=== PATIENT | female | born 1990 | race Two or more races ===

== ENCOUNTER → 2024-08-07 | Outpatient (CLI) | payer MEDICAID ==
[2024-08-07 08:10] LABS: Basophils # (auto) 0.1 10 ^3/uL (0-0.2); Eosinophils # (auto) 0.2 10 ^3/uL (0-0.8); Hematocrit 31.2 % (36.0-46.0); Hemoglobin 10.1 g/dL (12.2-16.2); Monocytes # (auto) 0.7 10 ^3/uL (0-1.3); Monocytes % (auto) 6.3 % (0.0-12.0); Neutrophils # (auto) 8.9 10 ^3/uL (1.6-8.6); Red Cell Distribution Width 14.6 % (11.8-14.3); White Blood Cell 11.6 10^3/uL (4.4-10.8)
[2024-08-07 08:14] LABS: Basophils % (auto) 0.5 % (0.0-2.0); Eosinophils % (auto) 1.4 % (0.0-7.0); Lymphocytes # (auto) 1.7 10 ^3/uL (0.4-5.4); Lymphocytes % (auto) 14.9 % (10.0-50.0); Mean Corpuscular Hemoglobin 24.4 pg (28.0-32.0); Mean Corpuscular Hgb Conc. 32.2 g/dL (32.0-36.0); Mean Corpuscular Volume 75.7 fL (80.0-100.0); Neutrophils % (auto) 76.9 % (37.0-80.0); Nucleated Red Blood Cells % 0.1 %; Platelet Count (auto) 373 10^3/uL (140-450); Red Blood Cells 4.13 10^6/uL (4.0-5.20)
[2024-08-07 08:26] LABS: Thyroid Stimulating Hormone 1.32 uIU/mL (0.55-4.78)
[2024-08-07 08:27] LABS: Alanine Aminotransferase 13 U/L (7-40); Albumin 3.8 g/dL (3.2-4.8); Anion Gap 9 (5-15); BUN/Creatinine Ratio 10.9 (10.0-20.0); Bilirubin, Total 0.4 mg/dL (0.2-1.0); Calcium 9.4 mg/dL (8.7-10.4); Carbon Dioxide 22 mmol/L (20-31); Chloride 106 mmol/L (98-107); Glucose 92 mg/dL (74-106); Sodium 137 mmol/L (136-145); Total Protein 6.4 g/dL (5.7-8.2)
[2024-08-07 08:37] LABS: Beta HCG, Quantitative 13572.3 mIU/mL (1.5-4.2)
[2024-08-07 08:38] LABS: Alkaline Phosphatase 173 U/L (46-116); Amphetamine Screen, Urine Neg (NEGATIVE); Aspartate Aminotransferase 12 U/L (13-40); Barbiturate Scree,Urine Neg (NEGATIVE); Benzodiazephine Screen, Urine Neg (NEGATIVE); Blood Urea Nitrogen 6 mg/dL (9-23); Cannabinoid Screen, Urine Neg (NEGATIVE); Cholesterol 249 mg/dL (< 200); Cocaine Screen, Urine Neg (NEGATIVE); HDL Cholesterol 65 mg/dL (40-59); LDL Cholesterol 192 mg/dL (< 100); Opiate Scree,Urine Neg (NEGATIVE); Phencyclidine Screen, Urine Neg (NEGATIVE); Triglycerides 189 mg/dL (< 150)
[2024-08-08 08:06] LABS: RPR Non Reactive (Non Reactive)
[2024-08-08 10:06] LABS: Varicella Zoster IgG Antibody Reactive (Non Reactive)
[2024-08-08 22:06] LABS: Chlamydia Trachomatis, NAA Negative (Negative); Neisseria gonorrhoeae, NAA Negative (Negative)
== END | disposition home or self-care (01) ==
LOC: LAB 07:09
PROVIDERS: ATTEND Obstetrics & Gynecology
DX: Z36.0 Encounter for antenatal screening for chromosomal anomalies (principal); Z39.0 Encounter for care and examination of mother immediately after delivery; N39.0 Urinary tract infection, site not specified; Z31.430 Encounter of female for testing for genetic disease carrier status for procreative management
CPT/HCPCS: 36415; 80053; 80061; 80307; 83036; 84439; 84443; 84702; 85025; 86592; 86703; 86706; 86762; 86787; 86850; 86900; 86901; 87086; 87902

== ENCOUNTER 2024-08-28 06:36 | Observation (INO) | payer SELFPAY ==
[2024-08-28] MEDS ORDERED: PREN-96 PO (11:37)
--- NOTE | 2024-08-28 12:45 | DVH ---
BIOPHYSICAL PROFILE HISTORY: double nuchal cord TECHNIQUE: Multiple transabdominal real-time grayscale sonographic images through the gravid uterus of the fetus with duplex Doppler color flow and M-mode spectral analysis FINDINGS: BIOPHYSICAL PROFILE: breathing score: 2 movement score: 2 tone score: 2 Quantitative JASPER score: 2 (JASPER: 20.4 Cm.) Total score: 8 The cervix not well visualized. Single live fetus in cephalic presentation. heart rate 138 beats per minute. Anterior placenta without previa or abruption IMPRESSION: Biophysical profile score: 8 Possible nuchal cord.
--- NOTE | 2024-08-28 17:42 | DVHDS2 ---
Physician Discharge Progress N Final Diagnosis: testing for nuchal cord Operations or Procedures: Operations or Procedures 34yo IUP@38.0wks, +FM, denies UCs/VB/LOF/VERDUZCO/vision changes/RUQ pain VSS NST reactive FKC/Labor/PreE precautions reviewed Other Interventions Other Interventions [address] [address] Ph: [phone] DIAGNOSTIC IMAGING Diagnostic Imaging Report : [id number] Signed PATIENT: GORDON IRIZARRY ACCT: [id number] UNIT: [id number] : 1990 LOC: [facility] ROOM / BED: TRIAGE2 / A AGE / SEX: 34 / F ADM STATUS: ADM IN SERVICE 24 ORDERING PHYSICIAN: CINTHIA GARCIA CNM PROCEDURE(s): BPP - BIOPHYSICAL PROFILE REASON: double nuchal cord ORDER NUMBER(s): [id number], ACCESSION NUMBER(s): [id number] BIOPHYSICAL PROFILE HISTORY: double nuchal cord TECHNIQUE: Multiple transabdominal real-time grayscale sonographic images through the gravid uterus of the fetus with duplex Doppler color flow and M-mode spectral analysis FINDINGS: BIOPHYSICAL PROFILE: breathing score: 2 movement score: 2 tone score: 2 Quantitative JASPER score: 2 (JASPER: 20.4 Cm.) Total score: 8 The cervix not well visualized. Single live fetus in cephalic presentation. heart rate 138 beats per minute. Anterior placenta without previa or abruption IMPRESSION: Biophysical profile score: 8 Possible nuchal cord. ATED BY: KORTNEY LÓPEZ MD DICTATED DATE/TIME: 08/28/244 SIGNED BY: KORTNEY LÓPEZ MD SIGNED DATE/TIME: 08/28/24 124 CC: Condition on Discharge: Stable Disposition: Home Discharge Instructions: Diet: Regular Activity: No Restrictions, As Tolerated Medications: see med list Follow Up Care: Specialist: f/u in 1 wk Discharge Statement: "Patient was advised to return to the ER or call 911 if any headaches, dizziness, shortness of breath, chest pain, abdominal pain, bleeding, fevers, or worsening of medical condition. Patient was counseled about treatment plan, medications, possible side effects, patientverbalized understanding. All questions were answered to the best of my ability. This discharge took greater then 30 minutes in planning, reviewing documentation, counseling the patient, and discussing with other team members." Visit Coding OBGYN Date of Service: Aug 28, 2024 Billing Provider: CINTHIA GARCIA CNM LUNG SPLITTER Common Visit Codes: 85422-ECYNBEN OBS CARE (HIGH) (NST/BPP) CINTHIA GARCIA CNM Aug 28, 2024 17:42
== END 2024-08-28 12:53 | disposition home or self-care (01) ==
LOC: LDRP 11:14 → UNDOADMOB 11:14 → LDRP 11:27 → UNDODISOB 12:53
PROVIDERS: ADMIT Obstetrics & Gynecology; ATTEND Obstetrics & Gynecology
DX: O69.81X0 Labor and delivery complicated by cord around neck, without compression, not applicable or unspecified (principal); Z3A.38 38 weeks gestation of pregnancy; Z79.899 Other long term (current) drug therapy
CPT/HCPCS: 59025; 76818; 81002; 94760; G0378

== ENCOUNTER 2024-08-30 10:52 | Observation (INO) | payer SELFPAY ==
[~2024-08-30 10:52] MED LIST: PREN-96 PO
[2024-08-30 12:20] LABS: Fern Testing Negative
--- NOTE | 2024-08-31 15:27 | DVHDS2 ---
Physician Discharge Progress N Final Diagnosis: rom ruled out Operations or Procedures: Operations or Procedures nst,sono Condition on Discharge: Good Disposition: Home Discharge Instructions: Diet: Regular Activity: No Restrictions, As Tolerated Medications: na Follow Up Care: Specialist: 3d Discharge Statement: "Patient was advised to return to the ER or call 911 if any headaches, dizziness, shortness of breath, chest pain, abdominal pain, bleeding, fevers, or worsening of medical condition. Patient was counseled about treatment plan, medications, possible side effects, patientverbalized understanding. All questions were answered to the best of my ability. This discharge took greater then 30 minutes in planning, reviewing documentation, counseling the patient, and discussing with other team members." Visit Coding OBGYN Date of Service: Aug 30, 2024 Billing Provider: YANNA RODRIGUEZ DO STRATEGIC MARKETING ASSOCIATE Common Visit Codes: 33653-TCY/OBS SAME DATE (HIGH) STRATEGIC MARKETING ASSOCIATE Procedure Codes: 18510-84- NON-STRESS TEST YANNA RODRIGUEZ DO Aug 31, 2024 15:27
== END 2024-08-30 11:51 | disposition home or self-care (01) ==
LOC: LDRP 10:52 → UNDOADMOB 10:52 → LDRP 11:03
PROVIDERS: ADMIT Obstetrics & Gynecology; ATTEND Obstetrics & Gynecology
DX: O42.913 Preterm premature rupture of membranes, unspecified as to length of time between rupture and onset of labor, third trimester (principal); Z3A.38 38 weeks gestation of pregnancy; Z79.899 Other long term (current) drug therapy; Z98.890 Other specified postprocedural states
CPT/HCPCS: 59025; 81002; 84112; 94760; G0378; Q0114

== ENCOUNTER 2024-09-04 06:56 | Observation (INO) | payer SELFPAY ==
--- NOTE | 2024-09-04 09:03 | DVH ---
BIOPHYSICAL PROFILE HISTORY: NUCHAL TECHNIQUE: Multiple transabdominal real-time grayscale sonographic images through the gravid uterus of the fetus with duplex Doppler color flow and M-mode spectral analysis FINDINGS: BIOPHYSICAL PROFILE: breathing score: 2 movement score: 2 tone score: 2 Quantitative JASPER score: 2 (JASPER: 19.8 Cm.) Total score: 8 The cervix not well visualized. Single live fetus in cephalic presentation. heart rate 140 beats per minute. Anterior placenta without previa or abruption Nuchal cord is visualized. IMPRESSION: Biophysical profile score: 8 Nuchal cord is visualized.
--- NOTE | 2024-09-04 20:12 | DVHDS2 ---
Physician Discharge Progress N Final Diagnosis: testing for nuchal cord Operations or Procedures: Operations or Procedures 34yo IUP@39.0wks, +FM, denies LOF/UCs/VB VSS NST reactive FKC/labor precautions reviewed Other Interventions Other Interventions [facility] [id number] [place] [address] Ph: [phone] DIAGNOSTIC IMAGING Diagnostic Imaging Report : [id number] Signed PATIENT: GORDON IRIZARRY ACCT: [id number] UNIT: [id number] : 1990 LOC: [facility] ROOM / BED: TRIAGE1 / A AGE / SEX: 34 / F ADM STATUS: ADM IN SERVICE 0 ORDERING PHYSICIAN: CINTHIA GARCIA CNM PROCEDURE(s): BPP - BIOPHYSICAL PROFILE REASON: NUCHAL ORDER NUMBER(s): [id number], ACCESSION NUMBER(s): [id number] BIOPHYSICAL PROFILE HISTORY: NUCHAL TECHNIQUE: Multiple transabdominal real-time grayscale sonographic images through the gravid uterus of the fetus with duplex Doppler color flow and M-mode spectral analysis FINDINGS: BIOPHYSICAL PROFILE: breathing score: 2 movement score: 2 tone score: 2 Quantitative JASPER score: 2 (JASPER: 19.8 Cm.) Total score: 8 The cervix not well visualized. Single live fetus in cephalic presentation. heart rate 140 beats per minute. Anterior placenta without previa or abruption Nuchal cord is visualized. IMPRESSION: Biophysical profile score: 8 Nuchal cord is visualized. ATED BY: KORTNEY LÓPEZ MD DICTATED DATE/TIME: 09/04/24901 SIGNED BY: KORTNEY LÓPEZ MD SIGNED DATE/TIME: 09/04/24901 CC: Condition on Discharge: Stable Disposition: Home Discharge Instructions: Diet: Regular Activity: No Restrictions, As Tolerated Medications: see med list Follow Up Care: Specialist: f/u in 1 wk at 40.0wks Discharge Statement: "Patient was advised to return to the ER or call 911 if any headaches, dizziness, shortness of breath, chest pain, abdominal pain, bleeding, fevers, or worsening of medical condition. Patient was counseled about treatment plan, medications, possible side effects, patientverbalized understanding. All questions were answered to the best of my ability. This discharge took greater then 30 minutes in planning, reviewing documentation, counseling the patient, and discussing with other team members." Visit Coding OBGYN Date of Service: Sep 04, 2024 Billing Provider: CINTHIA GARCIA CNM UNATTENDED GROUND SENSOR SPECIALIST Common Visit Codes: 03972-FJQROQT OBS CARE (HIGH) CINTHIA GARCIA CNM Sep 04, 2024 20:12
== END 2024-09-04 09:46 | disposition home or self-care (01) ==
LOC: UNDOADMOB 08:31 → LDRP 08:31 → UNDODISOB 09:46
PROVIDERS: ADMIT Obstetrics & Gynecology; ATTEND Obstetrics & Gynecology
DX: O69.81X0 Labor and delivery complicated by cord around neck, without compression, not applicable or unspecified (principal); Z98.890 Other specified postprocedural states; Z79.899 Other long term (current) drug therapy; Z3A.39 39 weeks gestation of pregnancy
CPT/HCPCS: 59025; 76818; 81002; 94760; G0378

== ENCOUNTER 2024-09-04 19:52 | Observation (INO) | payer SELFPAY ==
[~2024-09-04] VITALS: Ht 173 cm; Wt 83.9 kg
--- NOTE | 2024-09-04 23:33 | DVHDS2 ---
Physician Discharge Progress N Final Diagnosis: wellbeing established Operations or Procedures: Operations or Procedures S: 34yo IUP@39.0wks presents to OB triage with c/o DFM since this morning. Pt was in OB triage this morning for NST/BPP for nuchal cord. Denies LOF/VB/UCs/VERDUZCO/vision changes/RUQ pain. PNC with Dr. Marroquin, uncomplicated. Prior to D/C home pt reports feeling FM. O: VSS UA wnl EFM: FHR 125, moderate variability, +accels, -decels (last 30 minutes) TOCO: no UCs BPP from this morning was 8/8 PO hydrated with water and juice A: 34yo IUP@39.0wks Category I EFM P: D/C home kick counts and Preeclampsia warning signs reviewed. Labor precautions given and when to return to the hospital. Condition on Discharge: Stable Disposition: Home Discharge Instructions: Diet: Regular Activity: No Restrictions, As Tolerated Medications: see med list Follow Up Care: Specialist: f/u in 1 wk at 40wks Discharge Statement: "Patient was advised to return to the ER or call 911 if any headaches, dizziness, shortness of breath, chest pain, abdominal pain, bleeding, fevers, or worsening of medical condition. Patient was counseled about treatment plan, medications, possible side effects, patientverbalized understanding. All questions were answered to the best of my ability. This discharge took greater then 30 minutes in planning, reviewing documentation, counseling the patient, and discussing with other team members." Visit Coding OBGYN Date of Service: Sep 04, 2024 Billing Provider: CINTHIA GARCIA CNM COMMUNITY OUTREACH WORKER Common Visit Codes: 86359-QDOWSCF OBS CARE (HIGH) CINTHIA GARCIA CNM Sep 04, 2024 23:33
== END 2024-09-04 21:52 | disposition home or self-care (01) ==
LOC: LDRP 19:52
PROVIDERS: ADMIT Obstetrics & Gynecology; ATTEND Obstetrics & Gynecology
DX: O36.8130 Decreased fetal movements, third trimester, not applicable or unspecified (principal); O69.81X0 Labor and delivery complicated by cord around neck, without compression, not applicable or unspecified; Z98.890 Other specified postprocedural states; Z79.899 Other long term (current) drug therapy; Z3A.39 39 weeks gestation of pregnancy
CPT/HCPCS: 59025; 81002; 94760; G0378

== ENCOUNTER 2024-09-11 08:10 | Observation (INO) | payer SELFPAY ==
--- NOTE | 2024-09-11 09:10 | DVH ---
BIOPHYSICAL PROFILE HISTORY: nuchal cord TECHNIQUE: Multiple transabdominal real-time grayscale sonographic images through the gravid uterus of the fetus with duplex Doppler color flow and M-mode spectral analysis FINDINGS: BIOPHYSICAL PROFILE: breathing score: 2 movement score: 2 tone score: 2 Quantitative JASPER score: 2 (JASPER: 14.3 Cm.) Total score: 8 The cervix not well visualized. Single live fetus in vertex presentation. heart rate 120 beats per minute. Anterior placenta without previa or abruption IMPRESSION: Biophysical profile score: 8 No nuchal cord is seen at this time.
[2024-09-11] MEDS ORDERED: CEPH250C PO (10:57)
--- NOTE | 2024-09-11 19:34 | DVHDS2 ---
Physician Discharge Progress N Final Diagnosis: testing for term Problems List: (1) UTI (urinary tract infection) during (2) 40 weeks gestation of Operations or Procedures: Operations or Procedures 34yo IUP@40.0wks, +FM, Denies UCs/LOF/VB/VERDUZCO/vision changes/RUQ pain. VSS UA: +nitrites NST reactive BPP wnl, no nuchal cord today SVE by RN: closed/thick/high kick counts and Preeclampsia warning signs reviewed. Labor precautions given and when to return to the hospital. Dx with UTI, rx sent for keflex Other Interventions Other Interventions [place] [address] Ph: [phone] DIAGNOSTIC IMAGING Diagnostic Imaging Report : [id number] Signed PATIENT: GORDON IRIZARRY ACCT: [id number] UNIT: [id number] : 1990 LOC: [facility] ROOM / BED: TRIAGE3 / A AGE / SEX: 34 / F ADM STATUS: ADM IN SERVICE 7 ORDERING PHYSICIAN: CINTHIA GARCIA CNM PROCEDURE(s): BPP - BIOPHYSICAL PROFILE REASON: nuchal cord ORDER NUMBER(s): [id number], ACCESSION NUMBER(s): [id number] BIOPHYSICAL PROFILE HISTORY: nuchal cord TECHNIQUE: Multiple transabdominal real-time grayscale sonographic images through the gravid uterus of the fetus with duplex Doppler color flow and M-mode spectral analysis FINDINGS: BIOPHYSICAL PROFILE: breathing score: 2 movement score: 2 tone score: 2 Quantitative JASPER score: 2 (JASPER: 14.3 Cm.) Total score: 8 The cervix not well visualized. Single live fetus in vertex presentation. heart rate 120 beats per minute. Anterior placenta without previa or abruption IMPRESSION: Biophysical profile score: 8 No nuchal cord is seen at this time. ATED BY: KORTNEY LÓPEZ MD DICTATED DATE/TIME: 09/11/24908 SIGNED BY: KORTNEY LÓPEZ MD SIGNED DATE/TIME: 09/11/24908 CC: Condition on Discharge: Stable Disposition: Home Discharge Instructions: Diet: Regular Activity: No Restrictions, As Tolerated Medications: see med list Follow Up Care: Specialist: f/u in 2 days Discharge Statement: "Patient was advised to return to the ER or call 911 if any headaches, dizziness, shortness of breath, chest pain, abdominal pain, bleeding, fevers, or worsening of medical condition. Patient was counseled about treatment plan, medications, possible side effects, patientverbalized understanding. All questions were answered to the best of my ability. This discharge took greater then 30 minutes in planning, reviewing documentation, counseling the patient, and discussing with other team members." Visit Coding OBGYN Date of Service: Sep 11, 2024 Billing Provider: CINTHIA GARCIA CNM SONOSCOPE OPERATOR Common Visit Codes: 33137-[id number] OBS CARE (LOW) SONOSCOPE OPERATOR Procedure Codes: 41862-99- NON-STRESS TEST CINTHIA GARCIA CNM Sep 11, 2024 19:34
== END 2024-09-11 09:37 | disposition home or self-care (01) ==
LOC: LDRP 08:10
PROVIDERS: ADMIT Obstetrics & Gynecology; ATTEND Obstetrics & Gynecology
DX: O48.0 Post-term pregnancy (principal); O23.43 Unspecified infection of urinary tract in pregnancy, third trimester; N39.0 Urinary tract infection, site not specified; Z98.890 Other specified postprocedural states; Z79.899 Other long term (current) drug therapy; Z3A.40 40 weeks gestation of pregnancy
CPT/HCPCS: 59025; 76818; 81002; 94760; G0378

== ENCOUNTER 2024-09-13 08:35 | Observation (INO) | payer SELFPAY ==
[~2024-09-13 08:35] MED LIST changes: +CEPH250C PO
--- NOTE | 2024-09-13 09:46 | DVH ---
CLINICAL HISTORY: Term . COMPARISON: US BIOPHYSICAL PROFILE on DOS: 09/11/24, US BIOPHYSICAL PROFILE on DOS: 09/04/24, US BIOPHY SICAL PROFILE on DOS: 08/28/24 TECHNIQUE: biophysical profile was performed. Transabdominal sonographic images of the fetus we re obtained. FINDINGS: The fetus is in cephalic position. heart rate measures 126 BPM. Amniotic fluid index measures 15.3 cm. The placenta is anterior in position. BPP profile is an overall score of 8/8, with 2/2 points for breathing, with at least one episode of breathing over a 30 second duration during a 30 minute observation, 2/2 points for m ovements, with 3 or more discrete body or limb movements, 2/2 points for tone, with one or more episodes of extremity extension with return to flexion, or opening and closing of hand, and 2/ 2 points for amniotic fluid, with at least 1 pocket of amniotic fluid that measures 2 cm in 2 perpend icular planes. The umbilical cord is seen adjacent to the neck on some images, although not dem onstrated to be completely encircling the neck. IMPRESSION: 1. BPP score of 8/8. 2. The umbilical cord is seen adjacent to the neck, although not demonstrated to wrap completel y around the neck on this exam.
--- NOTE | 2024-09-13 15:56 | DVHDS2 ---
Physician Discharge Progress N Final Diagnosis: iup at 40wks labor check Operations or Procedures: Operations or Procedures nst 40wks,sono Condition on Discharge: Good Disposition: Home Discharge Instructions: Diet: Regular Activity: No Restrictions, As Tolerated Medications: na Follow Up Care: Specialist: 2d Discharge Statement: "Patient was advised to return to the ER or call 911 if any headaches, dizziness, shortness of breath, chest pain, abdominal pain, bleeding, fevers, or worsening of medical condition. Patient was counseled about treatment plan, medications, possible side effects, patientverbalized understanding. All questions were answered to the best of my ability. This discharge took greater then 30 minutes in planning, reviewing docum entation, counseling the patient, and discussing with other team members." Visit Coding OBGYN Date of Service: Sep 13, 2024 Billing Provider: YANNA RODRIGUEZ DO ROLLER BEARING INSPECTOR Common Visit Codes: 33395-VPS/OBS DISCH DAY <30MIN, 84437-FHO/OBS DISCH DAY >30MIN ROLLER BEARING INSPECTOR Procedure Codes: 63843-98- NON-STRESS TEST YANNA RODRIGUEZ DO Sep 13, 2024 15:56
== END 2024-09-13 10:05 | disposition home or self-care (01) ==
LOC: UNDOADMOB 08:35 → LDRP 08:35
PROVIDERS: ADMIT Obstetrics & Gynecology; ATTEND Obstetrics & Gynecology
DX: O62.9 Abnormality of forces of labor, unspecified (principal); Z3A.40 40 weeks gestation of pregnancy; Z79.899 Other long term (current) drug therapy
CPT/HCPCS: 59025; 76818; 81002; 94760; G0378

== ENCOUNTER 2024-09-15 06:41 | Observation (INO) | payer SELFPAY ==
--- NOTE | 2024-09-15 09:46 | DVH ---
BIOPHYSICAL PROFILE HISTORY: Post Dates Comparison Study: 09/13/2024 TECHNIQUE: Multiple real-time grayscale sonographic images through the gravid uterus of the fetus wi th duplex Doppler color flow and M-mode spectral analysis FINDINGS: BIOPHYSICAL PROFILE: breathing score: 2 movement score: 2 tone score: 2 Quantitative JASPER score: 2 (JASPER: 14.7 Cm.) Total score: 8 The cervix is not visualized Single live fetus in cephalic presentation. heart rate 148 beats per minute. Anterior placenta without previa or abruption IMPRESSION: Biophysical profile score: 8/8
--- NOTE | 2024-09-15 15:50 | DVHDS2 ---
Physician Discharge Progress N Final Diagnosis: Term here rule out labor history of nuchal cord Operations or Procedures: Operations or Procedures None ultrasound NST Consultations: Consultations None Condition on Discharge: Good Disposition: Home SNF Discharge Will this Physician continue t: No (Kick counts labor precautions follow up 48 hours or p.r.n. from increased labor or decreased movement) Discharge Instructions: Diet: Regular Activity: No Restrictions, As Tolerated Follow Up/Referral: 48 hour Medications: None Follow Up Care: Discharge Statement: "Patient was advised to return to the ER or call 911 if any headaches, dizziness, shortness of breath, chest pain, abdominal pain, bleeding, fevers, or worsening of medical condition. Patient was counseled about treatment plan, medications, possible side effects, patientverbalized understanding. All questions were answered to the best of my ability. This discharge took greater then 30 minutes in planning, reviewing documentation, counseling the patient, and discussing with other team members." Visit Coding OBGYN Date of Service: Sep 15, 2024 Billing Provider: PRETTY TAVARES DO GRADE TEACHER Common Visit Codes: 11754-BRX/OBS SAME DATE (LOW), 89226-GOK/OBS SAME DATE (MOD), 08585-XFP/OBS SAME DATE (HIGH) GRADE TEACHER Procedure Codes: 48541-18- NON-STRESS TEST PRETTY TAVARES DO Sep 15, 2024 15:50
== END 2024-09-15 10:46 | disposition home or self-care (01) ==
LOC: LDRP 08:39
PROVIDERS: ADMIT Obstetrics & Gynecology; ATTEND Obstetrics & Gynecology
DX: O48.0 Post-term pregnancy (principal); Z98.890 Other specified postprocedural states; Z79.899 Other long term (current) drug therapy; Z3A.40 40 weeks gestation of pregnancy
CPT/HCPCS: 59025; 76818; 81002; G0378

== ENCOUNTER 2024-09-16 19:57 | Inpatient (IN) | payer SELFPAY ==
[~2024-09-16] VITALS: Ht 172.7 cm; Wt 95.7 kg
[2024-09-16] MEDS ORDERED: LIDOCAINE 2%HCL (LOCAL ANESTH.) INJ 20ML MDV IJ PRN (20:15)
[2024-09-16] MEDS ORDERED: NALBUPHINE HCL 10 MG/1ml INJECTION IV PRN (20:15)
[2024-09-16] MEDS ORDERED: NALBUPHINE HCL 10 MG/1ml INJECTION IM PRN (20:15)
[2024-09-16 21:20] LABS: Basophils # (auto) 0 10 ^3/uL (0-0.2); Eosinophils # (auto) 0.1 10 ^3/uL (0-0.8); Mean Corpuscular Hemoglobin 24.6 pg (28.0-32.0); Nucleated Red Blood Cells % 0.1 %
[2024-09-16 21:22] LABS: Basophils % (auto) 0.3 % (0.0-2.0); Hematocrit 33.8 % (36.0-46.0); Hemoglobin 11.2 g/dL (12.2-16.2); Lymphocytes # (auto) 1.7 10 ^3/uL (0.4-5.4); Lymphocytes % (auto) 14.7 % (10.0-50.0); Mean Corpuscular Hgb Conc. 33.2 g/dL (32.0-36.0); Mean Corpuscular Volume 74.1 fL (80.0-100.0); Monocytes # (auto) 0.9 10 ^3/uL (0-1.3); Monocytes % (auto) 8.4 % (0.0-12.0); Neutrophils # (auto) 8.5 10 ^3/uL (1.6-8.6); Neutrophils % (auto) 75.6 % (37.0-80.0); Platelet Count (auto) 365 10^3/uL (140-450); Red Blood Cells 4.56 10^6/uL (4.0-5.20); Red Cell Distribution Width 17.3 % (11.8-14.3); White Blood Cell 11.3 10^3/uL (4.4-10.8)
[2024-09-16 21:36] LABS: INR 0.88 (0.9-1.15); Partial Thromboplastin Time 27.5 SEC (24.5-34.5); Prothrombin Time 9.4 sec (9.3-11.8)
[2024-09-16 21:39] LABS: Alanine Aminotransferase 24 U/L (7-40); Albumin 3.9 g/dL (3.2-4.8); Anion Gap 7 (5-15); Aspartate Aminotransferase 17 U/L (13-40); BUN/Creatinine Ratio 13.2 (10.0-20.0); Bilirubin, Total 0.4 mg/dL (0.2-1.0); Blood Urea Nitrogen 9 mg/dL (9-23); Calcium 9.8 mg/dL (8.7-10.4); Carbon Dioxide 23 mmol/L (20-31); Chloride 107 mmol/L (98-107); Glucose 85 mg/dL (74-106); Sodium 137 mmol/L (136-145)
[2024-09-16 21:40] LABS: Total Protein 6.4 g/dL (5.7-8.2)
[2024-09-16 21:44] LABS: Alkaline Phosphatase 273 U/L (46-116)
[2024-09-16] MEDS: miSOPROStol 50 MCG per PRE-CUT 1/2 TAB PO PRN (22:27)
[2024-09-16] MEDS: LACTATED RINGER'S 1,000 ML IV SCH (22:28)
[2024-09-16 22:34] LABS: Urine Bacteria FEW /hpf (None Seen); Urine Blood Negative /uL (Negative); Urine Clarity Clear (Clear); Urine Color Yellow (Yellow); Urine Protein, UAD TRACE (Negative); Urine Specific Gravity 1.024 (1.001-1.035); Urine Squamous Epithelial Cell MOD /hpf (<5); Urine Urobilinogen Normal (Negative); Urine WBC 13 /HPF (0-5)
[2024-09-16 22:48] LABS: Amphetamine Screen, Urine Neg (NEGATIVE); Barbiturate Scree,Urine Neg (NEGATIVE); Benzodiazephine Screen, Urine Neg (NEGATIVE); Cannabinoid Screen, Urine Neg (NEGATIVE); Cocaine Screen, Urine Neg (NEGATIVE); Opiate Scree,Urine Neg (NEGATIVE); Phencyclidine Screen, Urine Neg (NEGATIVE)
[2024-09-16 22:59] LABS: Hepatitis B Surface Antibody Positive (Negative)
--- NOTE | 2024-09-16 23:00 | DVHHP2 ---
OB CC & HPI Date Date of Admission: Sep 16, 2024 Patient Identification: : 2 Para: 1 EDC: Sep 11, 2024 EGA: 40 5/7 Chief Complaints: Reason for admission: induction of labor (probable nuchal cord) Indication for induction: post dates Admission Nurse Assessment Rev: Yes Past Medical History Cardiac: No pertinent Hx Pulmonary: No pertinent Hx Central Nervous System: No pertinent Hx GI: No pertinent Hx Hemotology/Oncology: No pertinent Hx Hepatobiliary: No pertinent Hx Psychiatric: No pertinent Hx Musculoskeletal: No pertinent Hx Rheumotologic: No pertinent Hx Infectious Disease: No peritnent Hx ENT: No pertinent Hx Renal/: No pertinent Hx Endocrine: No pertinent Hx Dermatology: No pertinent Hx Past Surgical History: No pertinent Hx OB History OB History Care: Limited Care ([facility]) Obstetrical Complications: None Medical Complications: None Allergies: Coded Allergies: NO KNOWN ALLERGIES (Unverified , 09/04/24) Home Meds Active Scripts Cephalexin (KEFLEX CAPSULE) 250 Mg Cp, 1 CAP PO BID for 7 Days, #14 CAP Prov:CINTHIA GARCIA CNM 09/11/24 Reported Medications Vit W/ Ferrous Fumara ( One Daily) Daily Tab, 1 TAB PO DAILY, #90 TAB 3 Refills 08/28/24 Current Medications Current Medications Medications (Trade) Dose Ordered Sig/Tonny Route PRN Reason Start Time Stop Time Status Last Admin Lactated Ringer's 1,000 ml @ 125 mls/hr Q8H IV 09/16/24 20:15 09/16/24 22:28 Nalbuphine HCl (Nubain) 10 mg Q4HP PRN IM MODERATE PAIN (4-6 PAIN SCALE) 09/16/24 20:15 Nalbuphine HCl (Nubain) 10 mg Q4HP PRN IV MODERATE PAIN (4-6 PAIN SCALE) 09/16/24 20:15 Witch Pushpa (Tucks) 1 pad PRN PRN TOP PERINEAL AREA DISCOMFORT 09/16/24 20:15 Sodium Lauryl Sulfate (Phisoderm) 240 ml PRN PRN TOP PERINEAL AREA DISCOMFORT 09/16/24 20:15 Benzocaine (Dermoplast) 1 applic PRN PRN TOP PERINEAL AREA DISCOMFORT 09/16/24 20:15 Misoprostol (Cytotec) 50 mcg Q4HPRN PRN PO CERVICAL RIPENING 09/16/24 20:15 09/16/24 22:27 Lidocaine HCl (Xylocaine) 20 ml ONCE PRN IJ PERINEAL AREA DISCOMFORT 09/16/24 20:15 Family & Social History Family/Social History Blood Type: A+ Rubella: immune RPR/VDRL: Negative GBS Status: Negative HBsAG: Unknown Review of Systems Constitutional: No symptom reported Ears, Nose, & Throat: No symptom reported Eyes: No symptom reported Pulmonary/Respiratory: No symptom reported Cardiovascular: No symptom reported Gastrointestinal: No symptom reported Genitourinary: No symptom reported Musculoskeletal: No symptom reported Skin: No symptom reported Psychiatric: No symptom reported Endocrine: No symptom reported Hemotologic/Lymphatic: No symptom reported OB Admission Exam Physical Exam HEENT: TMs Normal, Fontanelles Normal, Nasal Mucosa Normal, Eyes non-injected, Oropharynx Normal, PERRLA, Moist Membranes, EOMI Heart: Rhythm Normal Lungs: Clear Abdomen: Non tender Extremities: Normal Reflexes: Normal Cervical Dilatation: Fingertip Effacement: 50% Station: -3 Membranes: Intact Heart Rate: 140's Accelerations: Accelerations Present Decelerations: No Decelerations Short Term Variability: Present Plastic Surgery Technician Variability: Average (6-25) Contractions on Admission: >10 Minutes Apart Intensity: Mild OB Plan Plan Admitting Diagnosis: IOL FOR TERM/NUCHAL Plan: Other (cytotec) PRETTY TAVARES DO Sep 16, 2024 23:00
[2024-09-16 23:11] LABS: Hepatitis C Antibody Negative (Negative)
[2024-09-17] MEDS: WITCH HAZEL-GLYCERIN PAD TOP PRN (02:27)
[2024-09-17] MEDS: PHISODERM TOP SOLN 240ML BTL TOP PRN (02:27)
[2024-09-17] MEDS: DERMOPLAST 60ML BOTTLE TOP PRN (02:27)
--- NOTE | 2024-09-17 07:12 | DVHPN2 ---
OB Labor Progress Note Date and Time Seen Date Seen: Sep 17, 2024 Time Seen: 07:09 Subjective Patient reports: No new complaints Subjective Comment Pain mild Objective Vital Signs Afeb VS stable Monitoring Method Monitoring Method: External Heart Rate Heart Rate Baseline: 120 Heart Rate Variability: Moderate Presence of FHR Accelerations: Yes Presence of FHR Decelerations: No Contractions Contractions Frequency: Other (2-3 in 10 mins) Contractions Intensity: Mild Contractions Resting Tone: Relaxed Membranes Membranes: Intact Vaginal Exam Vag Exam Deferred: Yes Medications Medications - Pitocin: No Medication - Epidural: No Lab Results Lab Results Current Medications Medications (Trade) Dose Ordered Sig/Tonny Start Time Stop Time Status Last Admin Dose Admin Lactated Ringer's 1,000 ml @ 125 mls/hr Q8H 09/16/24 20:15 09/17/24 08:30 125 MLS/HR Nalbuphine HCl (Nubain) 10 mg Q4HP PRN 09/16/24 20:15 Nalbuphine HCl (Nubain) 10 mg Q4HP PRN 09/16/24 20:15 Witch Pushpa (Tucks) 1 pad PRN PRN 09/16/24 20:15 09/17/24 02:27 1 PAD Sodium Lauryl Sulfate (Phisoderm) 240 ml PRN PRN 09/16/24 20:15 09/17/24 02:27 240 ML Benzocaine (Dermoplast) 1 applic PRN PRN 09/16/24 20:15 09/17/24 02:27 1 APPLIC Misoprostol (Cytotec) 50 mcg Q4HPRN PRN 09/16/24 20:15 09/17/24 06:52 50 MCG Lidocaine HCl (Xylocaine) 20 ml ONCE PRN 09/16/24 20:15 Oxytocin 500 ml @ 999 mls/hr Q31M ONCE 09/16/24 20:15 09/16/24 21:02 DC Oxytocin 500 ml @ 125 mls/hr Q4H ONCE 09/16/24 20:45 09/17/24 00:44 DC Oxytocin 1,000 ml @ 6 ml/hr Q24H 09/17/24 11:30 09/17/24 12:23 6 ML/HR Naloxone HCl (Narcan) 0.2 mg PRN ONCE 09/17/24 12:00 09/17/24 12:01 DC Ephedrine Sulfate (ePHEDrine SULFATE) 10 mg PRN ONCE 09/17/24 12:00 09/17/24 12:01 DC 09/17/24 14:34 10 MG Laboratory Tests Test 09/16/24 21:00 Range/Units White Blood Count 11.3 H 4.4-10.8 10^3/uL Red Blood Count 4.56 4.0-5.20 10^6/uL Hemoglobin 11.2 L 12.2-16.2 g/dL Hematocrit 33.8 L 36.0-46.0 % Mean Corpuscular Volume 74.1 L 80.0-100.0 fL Mean Corpuscular Hemoglobin 24.6 L 28.0-32.0 pg Mean Corpuscular Hemoglobin Concent 33.2 32.0-36.0 g/dL Red Cell Distribution Width 17.3 H 11.8-14.3 % Platelet Count 365 140-450 10^3/uL Mean Platelet Volume 7.3 6.9-10.8 fL Neutrophils (%) (Auto) 75.6 37.0-80.0 % Lymphocytes (%) (Auto) 14.7 10.0-50.0 % Monocytes (%) (Auto) 8.4 0.0-12.0 % Eosinophils (%) (Auto) 1.0 0.0-7.0 % Basophils (%) (Auto) 0.3 0.0-2.0 % Neutrophils # (Auto) 8.5 1.6-8.6 10 ^3/uL Lymphocytes # (Auto) 1.7 0.4-5.4 10 ^3/uL Monocytes # (Auto) 0.9 0-1.3 10 ^3/uL Eosinophils # (Auto) 0.1 0-0.8 10 ^3/uL Basophils # (Auto) 0 0-0.2 10 ^3/uL Nucleated Red Blood Cells 0.1 % Prothrombin Time 9.4 9.3-11.8 sec Prothrombin Time INR 0.88 L 0.9-1.15 Activated Partial Thromboplast Time 27.5 24.5-34.5 SEC Urine Color Yellow Yellow Urine Clarity Clear Clear Urine pH 6.0 5.0-9.0 Urine Specific [place] 1.024 1.001-1.035 Urine Protein Trace H Negative Urine Ketones Negative Negative Urine Blood Negative Negative /uL Urine Nitrite Negative Negative Urine Bilirubin Negative Negative Urine Urobilinogen Normal Negative mg/dL Urine Leukocyte Esterase Trace Negative /uL Urine RBC 1 0 - 4 /hpf Urine Microscopic WBC 13 H 0-5 /HPF Urine Squamous Epithelial Cells Mod <5 /hpf Urine Bacteria Few H None Seen /hpf Urine Glucose 2+ H Normal mg/dL Sodium Level 137 136-145 mmol/L Potassium Level 4.0 3.5-5.1 mmol/L Chloride Level 107 98-107 mmol/L Carbon Dioxide Level 23 20-31 mmol/L Anion Gap 7 5-15 Blood Urea Nitrogen 9 9-23 mg/dL Creatinine 0.68 0.550-1.02 mg/dL Glomerular Filtration Rate Calc 117 >90 mL/min BUN/Creatinine Ratio 13.2 10.0-20.0 Serum Glucose 85 74-106 mg/dL Calcium Level 9.8 8.7-10.4 mg/dL Total Bilirubin 0.4 0.2-1.0 mg/dL Aspartate Amino Transferase (AST) 17 13-40 U/L Alanine Aminotransferase (ALT) 24 7-40 U/L Alkaline Phosphatase 273 H 46-116 U/L Total Protein 6.4 5.7-8.2 g/dL Albumin 3.9 3.2-4.8 g/dL Urine Opiates Screen Neg NEGATIVE Urine Fentanyl Screen Neg NEGATIVE Urine Barbiturates Screen Neg NEGATIVE Urine Phencyclidine Screen Neg NEGATIVE Urine Amphetamines Screen Neg NEGATIVE Urine Benzodiazepines Screen Neg NEGATIVE Urine Cocaine Screen Neg NEGATIVE Urine Cannabinoids Screen Neg NEGATIVE Rapid Plasma Reagin Pending Treponema pallidum Ab (TP-PA) Pending Hepatitis B Surface Antigen Negative Negative Hepatitis B Surface Antibody Positive H Negative Hepatitis C Antibody Negative Negative Assessment Assessment 34y IUP 40.6 weeks. Induction of labor nuchal cord x 1 Category 1 tracing Plan Plan Continue induction of labor w/ prostaglandin cytotec PO as needed Pain control discussed, declined epidural at this time supportive care Plan discussed with: Patient, Other (RN) Visit Coding OBGYN Date of Service: Sep 17, 2024 Billing Provider: JOSSELYN GONZALEZ DO DOUGH CATCHER Common Visit Codes: [id number] INP/OBS CARE(HIGH) JOSSELYN GONZALEZ DO Sep 17, 2024 07:12
[2024-09-17] MEDS: NALOXONE HCL 0.4 MG/ML VIAL IV ONE (12:00)
[2024-09-17] MEDS: LACT. RINGERS/OXYTOCIN 20UNITS 1,000 ML IV SCH (12:23)
[2024-09-17] MEDS: ROPIVACAINE HCL 200 ML ONE (13:55)
[2024-09-17] MEDS: ePHEDrine SULFATE 50 MG/ML AMP IV ONE (14:34)
[2024-09-17] MEDS: LACT. RINGERS/OXYTOCIN 20UNITS 500 ML IV ONE ×2 (21:36)
--- NOTE | 2024-09-17 22:24 | LDN2 ---
Labor and Delivery Note Date 09/17/24 Age 34 2 Para 2 EDC 09/11/24 EGA 40.6 Diagnosis Term , delivered Vaginal Delivery: VTX Vacuum Assisted: No Placenta: Spontaneous Sex: Female Weight Pending Apgars 8/9 Amniotic Fluid: Clear Anesthesia Epidural Episiotomy: No Extension: Yes Repaired with 2nd degree perineal laceration repaired w/ 3-0 and 2-0 chromic Rectal exam WNL, not involved in laceration Vaginal mucosa and deep perineal muscles, skin all well approximated EBL 100 mL Labs Laboratory Tests 09/16/24 21:00: Hepatitis B Surface Antigen Negative 08/07/24 07:29: HIV (1&2) Antibody Negative, Rubella Antibody Positive Blood Bank 09/16/24 21:00: Blood Type A POSITIVE Complications None Comments/Significant Med Nicho No nuchal cord found at delivery as suggested previously by ultrasound Visit Coding OBGYN Date of Service: Sep 17, 2024 Billing Provider: JOSSELYN GONZALEZ DO SOFTWARE RELEASE MANAGER Common Visit Codes: [id number] INP/OBS CARE(HIGH) SOFTWARE RELEASE MANAGER Procedure Codes: [id number] OB CARE,VAG DELIVERY JOSSELYN GONZALEZ DO Sep 17, 2024 22:24
[2024-09-18] MEDS ORDERED: ACETAMINOPHEN 325 MG TAB PO PRN (00:15)
[2024-09-18] MEDS ORDERED: ONDANSETRON ODT 4 MG TAB PO PRN (00:15)
[2024-09-18] MEDS: IBUPROFEN 600 MG TAB PO PRN (02:30)
[2024-09-18 03:15] VITALS: BP 109/55; PULSE 88; RESP 16; TEMP 98.1; O2SAT 95
--- NOTE | 2024-09-18 05:33 | DVHPN2 ---
Progress Note Date Seen: Sep 18, 2024 Subjective PPD#1 s/p , repair of 2nd deg laceration (perineal) S: doing well. Lochia mild. pain controlled. well. No issues overnight vital signs Vital Sign Date Time Temp Pulse Resp B/P (MAP) Pulse Ox O2 Delivery O2 Flow Rate FiO2 09/18/24 03:15 98.1 88 16 109/55 (73) 95 98.1 09/17/24 23:58 Room Air Total Intake and Output 09/17/24 09/17/24 09/18/24 15:00 23:00 07:00 Output Total 600 ml Balance -600 ml medications Current Medications Medications Dose Ordered Sig/Tonny Route Start Time Stop Time Status Last Admin Dose Admin Lactated Ringer's 1,000 ml @ 125 mls/hr Q8H IV 09/16/24 20:15 09/17/24 08:30 125 MLS/HR Nalbuphine HCl 10 mg Q4HP PRN IM 09/16/24 20:15 Nalbuphine HCl 10 mg Q4HP PRN IV 09/16/24 20:15 Witch Pushpa 1 pad PRN PRN TOP 09/16/24 20:15 09/17/24 02:27 1 PAD Sodium Lauryl Sulfate 240 ml PRN PRN TOP 09/16/24 20:15 09/17/24 02:27 240 ML Benzocaine 1 applic PRN PRN TOP 09/16/24 20:15 09/17/24 02:27 1 APPLIC Misoprostol 50 mcg Q4HPRN PRN PO 09/16/24 20:15 09/17/24 06:52 50 MCG Lidocaine HCl 20 ml ONCE PRN IJ 09/16/24 20:15 Oxytocin 1,000 ml @ 6 ml/hr Q24H IV 09/17/24 11:30 09/17/24 12:23 6 ML/HR Ibuprofen 600 mg Q6HP PRN PO 09/18/24 00:15 09/18/24 02:30 600 MG Docusate Calcium 240 mg DAILY PO 09/18/24 10:00 Acetaminophen 650 mg Q4HP PRN PO 09/18/24 00:15 Ondansetron HCl 4 mg Q4HPRN PRN PO 09/18/24 00:15 Docusate Sodium 200 mg HS PO 09/18/24 22:00 laboratory and microbiology Laboratory Tests 09/16/24 21:00 Test 09/16/24 21:00 Range/Units Serum Glucose 85 74-106 mg/dL Objective O: AFVSS Chest: heart and lung sounds normal. Abd soft, non-tender, fundus firm, BS, no rebound or guarding, Ext Neg Homans, Non-tender, edema Lochia - minimal Labs Pending Assessment/Plan 34y s/p at Term 40+ wk, doing well Continue current supportive care Possible D/C after 24 hr vs early am tomorrow. check CBC today. Plan discussed with: Patient, Other (RN) Visit Coding OBGYN Date of Service: Sep 18, 2024 Billing Provider: JOSSELYN GONZALEZ DO [employer] SCI[employer]ES DEPARTMENT CHAIR Common Visit Codes: [id number] INP/OBS CARE(MOD) JOSSELYN GONZALEZ DO Sep 18, 2024 05:33
[2024-09-18 07:00] VITALS: RESP 12
[2024-09-18 07:14] LABS: Basophils # (auto) 0 10 ^3/uL (0-0.2); Basophils % (auto) 0.3 % (0.0-2.0); Eosinophils # (auto) 0.1 10 ^3/uL (0-0.8); Eosinophils % (auto) 0.7 % (0.0-7.0); Hematocrit 29.5 % (36.0-46.0); Hemoglobin 9.4 g/dL (12.2-16.2); Lymphocytes # (auto) 1.9 10 ^3/uL (0.4-5.4); Lymphocytes % (auto) 13.6 % (10.0-50.0); Mean Corpuscular Hemoglobin 23.9 pg (28.0-32.0); Mean Corpuscular Volume 74.8 fL (80.0-100.0); Monocytes # (auto) 1.2 10 ^3/uL (0-1.3); Monocytes % (auto) 8.8 % (0.0-12.0); Neutrophils # (auto) 10.8 10 ^3/uL (1.6-8.6); Neutrophils % (auto) 76.6 % (37.0-80.0); Nucleated Red Blood Cells % 0.1 %; Platelet Count (auto) 297 10^3/uL (140-450); Red Blood Cells 3.94 10^6/uL (4.0-5.20); Red Cell Distribution Width 17.7 % (11.8-14.3); White Blood Cell 14.1 10^3/uL (4.4-10.8)
[2024-09-18 08:07] LABS: RPR Non Reactive (Non Reactive)
[2024-09-18] MEDS: DOCUSATE CALCIUM 240 MG CAP PO SCH (10:00)
[2024-09-18 11:30] VITALS: BP 110/61; PULSE 90; RESP 15; TEMP 98.2; O2SAT 97
[2024-09-18 14:54] VITALS: BP 115/55; PULSE 83; RESP 18; TEMP 98.1; O2SAT 97
[2024-09-18 18:30] VITALS: BP 116/73; PULSE 94; RESP 16; TEMP 98.8; O2SAT 95
[2024-09-18] MEDS ORDERED: IBU600T PO (21:46)
[2024-09-18] MEDS ORDERED: DOCU-265 PO (21:46)
--- NOTE | 2024-09-18 21:48 | DVHDS2 ---
Obstetrics Discharge Summary Obstetrics Discharge Summary Date of Admission: Sep 16, 2024 Date of Discharge: Sep 18, 2024 Reason For Admission: Induction of Labor Procedures: NST Intrapartum Procedures: Spontaneous vaginal deliv Procedures: Hct/date: (09/18/24), Hgb/date: (09/18/24) Operative Complicat: Laceration (2nd degree perineal laceration) Discharge Diagnosis: Term -Delivered Discharge Information: Activity (as tolerated, no heavy lifting and nothing in the vagina for 6 weeks), Diet (Routine), Medications (rx sent), Instructions (Routine), Discharge to (Home), Accompanied by (partner), Discarge date (09/18/24) Visit Coding OBGYN Date of Service: Sep 18, 2024 Billing Provider: CINTHIA GARCIA CNM [employer] MECHANIC Common Visit Codes: [id number]/[id number] DISCH DAY <30MIN CINTHIA GARCIA CNM Sep 18, 2024 21:48
[2024-09-18] MEDS ORDERED: DOCUSATE SOD 100 MG CAP PO SCH (22:00)
[2024-09-18 22:59] VITALS: BP 116/73; PULSE 94; RESP 16; TEMP 98.8; O2SAT 95
[2024-09-19 10:07] LABS: Rubella Antibodies, IgG 1.73 index (Immune >0.99)
[2024-09-20 12:07] LABS: Treponema Pallidum Ab LC Non Reactive (Non Reactive)
== END 2024-09-18 22:59 | disposition home or self-care (01) | DRG 807 ==
LOC: LDRP 19:57
PROVIDERS: ADMIT Obstetrics & Gynecology; ATTEND Obstetrics & Gynecology
PROC: 10E0XZZ Delivery of Products of Conception, External Approach (ICD-10-PCS; principal; 2024-09-17)
PROC: 0KQM0ZZ Repair Perineum Muscle, Open Approach (ICD-10-PCS; 2024-09-17)
PROC: 3E0DXGC Introduction of Other Therapeutic Substance into Mouth and Pharynx, External Approach (ICD-10-PCS; 2024-09-17)
PROC: 10907ZC Drainage of Amniotic Fluid, Therapeutic from Products of Conception, Via Natural or Artificial Opening (ICD-10-PCS; 2024-09-17)
PROC: 3E0R3BZ Introduction of Anesthetic Agent into Spinal Canal, Percutaneous Approach (ICD-10-PCS; 2024-09-17)
PROC: 3E0R33Z Introduction of Anti-inflammatory into Spinal Canal, Percutaneous Approach (ICD-10-PCS; 2024-09-17)
DX: O48.0 Post-term pregnancy (principal); Z37.0 Single live birth; O70.1 Second degree perineal laceration during delivery; Z3A.40 40 weeks gestation of pregnancy; Z79.2 Long term (current) use of antibiotics; Z79.899 Other long term (current) drug therapy
CPT/HCPCS: 36415; 59409; 62282; 80053; 80307; 81001; 81002; 85025; 85610; 85730; 86592; 86706; 86762; 86780; 86803; 86850; 86900; 86901; 87340; 94760; 96360; 96361; 96365; 96366; G0378; J2590

== ENCOUNTER → 2024-12-07 | Outpatient (CLI) | payer SELFPAY ==
[~2024-12-07] MED LIST changes: -CEPH250C PO; +DOCU-265 PO; +IBU600T PO
[2024-12-07 12:57] LABS: Basophils # (auto) 0.1 10 ^3/uL (0-0.2); Lymphocytes # (auto) 1.9 10 ^3/uL (0.4-5.4); Monocytes # (auto) 0.6 10 ^3/uL (0-1.3); Red Cell Distribution Width 19.4 % (11.8-14.3)
[2024-12-07 12:59] LABS: Basophils % (auto) 0.8 % (0.0-2.0); Eosinophils # (auto) 0.1 10 ^3/uL (0-0.8); Hematocrit 38.2 % (36.0-46.0); Hemoglobin 12.5 g/dL (12.2-16.2); Lymphocytes % (auto) 25.7 % (10.0-50.0); Mean Corpuscular Hemoglobin 24.4 pg (28.0-32.0); Mean Corpuscular Hgb Conc. 32.8 g/dL (32.0-36.0); Mean Corpuscular Volume 74.2 fL (80.0-100.0); Monocytes % (auto) 7.6 % (0.0-12.0); Neutrophils # (auto) 4.8 10 ^3/uL (1.6-8.6); Neutrophils % (auto) 63.9 % (37.0-80.0); Nucleated Red Blood Cells % 0.1 %; Platelet Count (auto) 329 10^3/uL (140-450); Red Blood Cells 5.14 10^6/uL (4.0-5.20); White Blood Cell 7.5 10^3/uL (4.4-10.8)
== END | disposition home or self-care (01) ==
LOC: LAB 12:34
DX: N89.8 Other specified noninflammatory disorders of vagina (principal); R53.83 Other fatigue; Z30.431 Encounter for routine checking of intrauterine contraceptive device
CPT/HCPCS: 36415; 84702; 85025